=== PATIENT | male | born 1960 | race Caucasian/White ===

== ENCOUNTER → 2018-05-10 10:40 | Outpatient (CLI) | payer OTHER, SELFPAY ==
--- NOTE | 2018-05-10 | DI.RAD.S_ITS ---
PROCEDURE: XR LUMBAR SPINE 2-3V INDICATIONS: BACK PAIN TECHNIQUE: 2 views of the lumbar spine were acquired. COMPARISON: None. FINDINGS: Bones: No fracture or focal osseous destruction. Diffuse facet arthropathy, although most pronounced at L3-S1. Endplate sclerosis and spurring. Mild narrowing of L4-L5 and L5-S1 disc spaces. There is also mild narrowing of the T12-L1 disc space. Soft tissues: Patchy opacifications are present in these suggests a large distal aortic aneurysm measuring up to 5.5 cm AP. IMPRESSION: Diffuse facet arthropathy. Multilevel mild lumbar disc degeneration as above. Large distal abdominal aortic aneurysm is suspected based on the atherosclerotic vascular calcifications. Recommend further evaluation with dedicated contrast-enhanced CT abdomen/pelvis. Findings were personally telephoned and discussed with Dr. Pio Jarrett (of [facility]) for further followup and management on 05/10/18 Dictated by: Kd Pacheco M.D. on 05/10/2018 at 14:43 Approved by: Kd Pacheco M.D. on 05/10/2018 at 15:45
== END ==
PROVIDERS: PCP Family Medicine
DX: M47.816 Spondylosis without myelopathy or radiculopathy, lumbar region (principal); M47.817 Spondylosis without myelopathy or radiculopathy, lumbosacral region; M48.05 Spinal stenosis, thoracolumbar region; M48.061 Spinal stenosis, lumbar region without neurogenic claudication; M48.07 Spinal stenosis, lumbosacral region
CPT/HCPCS: 72100